=== PATIENT | male | born 1975 | race Caucasian/White ===

== ENCOUNTER 2025-01-05 04:56 | Inpatient (IN) | payer OTHER ==
[2025-01-05] VITALS (18 sets, daily range): BP systolic 112–169; BP diastolic 63–96; PULSE 53–73; RESP 9–20; TEMP 97.4–98.2; O2SAT 96–100
[~2025-01-05] VITALS: Ht 185.4 cm; Wt 120.2 kg
[2025-01-05 05:09] LABS: BASOPHILS % 0.8 % (0.0-1.0); EOSINOPHILS % 1.4 % (0.0-6.0); LYMPHOCYTES % 35.7 % (18.0-39.1); MONOCYTES % 11.2 % (4.4-11.3); NEUTROPHILS % 50.6 % (38.7-80.0); RED CELL DISTRIBUTION WIDTH 13.0 % (11.7-14.4)
[2025-01-05] MEDS: ONDANSETRON HCL INJ 2MG/ML 2ML 2 MG/ML VIAL IV STA (05:23)
[2025-01-05] MEDS: KETOROLAC TROMETHAMINE 30 MG/ML VIAL IV STA (05:24)
[2025-01-05] MEDS ORDERED: HYDRALAZINE HCL 20 MG/ML VIAL IV PRN (05:30)
[2025-01-05] MEDS ORDERED: Morphine 4mg INJECTION 4 MG/ML INJ IV PRN (05:30)
[2025-01-05] MEDS ORDERED: ONDANSETRON HCL INJ 2MG/ML 2ML 2 MG/ML VIAL IV PRN (05:30)
[2025-01-05 05:34] LABS: EST GLOMERULAR FILTRATION RATE 84.0 ML/MIN (>=60)
[2025-01-05] MEDS: SODIUM CHLORIDE 0.9% 1000ML 1,000 ML IV SCH (06:01)
[2025-01-05] MEDS: Morphine 4mg INJECTION 4 MG/ML INJ IV STA (06:01)
[2025-01-05] MEDS ORDERED: LISINOPRIL20 MG PO (08:16)
[2025-01-05] MEDS ORDERED: AMLODIPINE BES2.5 MG PO (08:16)
[2025-01-05] MEDS ORDERED: PAROXETINE HCL10 MG PO (08:16)
[2025-01-05] MEDS ORDERED: ASPIRIN 81 MG ENTERIC COATED PO SCH (09:00)
[2025-01-05] MEDS ORDERED: [UNRECOGNIZED DRUG - OTHER] SQ (16:57)
[2025-01-05] MEDS: FENTANYL CITRATE/PF 100MCG/2 ML INJ ONE (20:18)
[2025-01-05] MEDS: VERAPAMIL HCL 2.5 MG/ML 2 ML VIAL ONE (20:18)
[2025-01-05] MEDS: LIDOCAINE HCL 1% LOCAL INJ 20 ML VIAL ONE (20:18)
[2025-01-05] MEDS: MIDAZOLAM HCL 2 MG/2 ML VIAL ONE ×2 (20:18)
[2025-01-05] MEDS: IOPAMIDOL 370 MG/ML 100 ML INFUS..BTL INJ ONE (20:18)
[2025-01-05] MEDS: HEPARIN SOD/SOD CHLORIDE 2,000 ML ONE (20:18)
[2025-01-06] VITALS (8 sets, daily range): BP systolic 136–156; BP diastolic 85–95; PULSE 57–70; RESP 18–20; TEMP 97.4–98.1; O2SAT 98–100
[2025-01-06 05:36] LABS: BASOPHILS % 0.5 % (0.0-1.0); EOSINOPHILS % 1.5 % (0.0-6.0); LYMPHOCYTES % 29.7 % (18.0-39.1); MONOCYTES % 7.9 % (4.4-11.3); NEUTROPHILS % 59.9 % (38.7-80.0); RED CELL DISTRIBUTION WIDTH 13.1 % (11.7-14.4)
[2025-01-06 06:04] LABS: CHOL/HDL RATIO 5.2 (3.9-4.7); EST GLOMERULAR FILTRATION RATE 101.0 ML/MIN (>=60); LDL CHOLESTEROL 106.0 MG/DL (60-130)
[2025-01-06] MEDS: LISINOPRIL 20 MG TAB PO SCH (08:54)
[2025-01-06] MEDS: AMLODIPINE BESYLATE 5 MG TAB PO SCH (08:54)
[2025-01-06] MEDS: ASPIRIN 81 MG ENTERIC COATED PO SCH (08:54)
[2025-01-06] MEDS: HYDRALAZINE HCL 20 MG/ML VIAL IV ONE (15:33)
[2025-01-06] MEDS: HYDRALAZINE HCL 10 MG TAB PO ONE (16:43)
== END 2025-01-06 17:15 | disposition home or self-care (01) | DRG 311 ==
LOC: ER 05:01 → ERHOLD 05:27 → MED/SURG3 14:11
PROVIDERS: ADMIT Internal Medicine; ATTEND Internal Medicine
DX: I20.0 Unstable angina (principal); I16.0 Hypertensive urgency; M17.9 Osteoarthritis of knee, unspecified; K59.00 Constipation, unspecified; M19.90 Unspecified osteoarthritis, unspecified site; G47.33 Obstructive sleep apnea (adult) (pediatric); M47.9 Spondylosis, unspecified; E66.01 Morbid (severe) obesity due to excess calories; Z72.0 Tobacco use; Z68.35 Body mass index [BMI] 35.0-35.9, adult
CPT/HCPCS: 36415; 71045; 76937; 80053; 80061; 82550; 83690; 83880; 84484; 85025; 85379; 93005; 93306; 93458; 99152; 99153; 99284; C1769; C1887; J0360; J1885; J2003; J2250; J2270; J2405; J2470; J7030; Q9967